=== PATIENT | male | born 1970 | race Caucasian/White ===

== ENCOUNTER 2023-06-10 08:09 | Outpatient (OUT) | payer OTHER, SELFPAY ==
--- NOTE | 2023-06-10 08:00 | CA_ITS ---
Patient Name: RINKU MACHADO MR#: [id number] : 1970 Exam Date: 06/10/2023 Ordering Doctor: ELLIE JEONG ECHOCARDIOGRAM REPORT PROCEDURE: CA ECHO DOPPLER COMPLETE INDICATIONS: Ascending aorta aneurysm, Aortic valve 27 mm Magna pericardial bioprosthesis, CABGx3, hypertension, diabetes COMPARISON: None. DESCRIPTION: COMPLETE ECHOCARDIOGRAM Real-time transthoracic echocardiography with 2D, M-mode, spectral and color flow Doppler performed. QUALITY: Technically difficult due to patient's condition. 68 , 230#, BSA 2.17 m2, BP 134/72 LEFT VENTRICLE: Normal chamber size. Mild concentric left ventricular hypertrophy. LV EF: Global left ventricular systolic function is difficult to assess but appears mildly reduced; visually estimated ejection fraction is 45 to 50%. Unable to assess regional wall motion abnormalities. DIASTOLIC: Grade I diastolic dysfunction. ATRIAL SEPTUM: Visually appears intact. LEFT ATRIUM: Normal chamber size. RIGHT ATRIUM: Normal chamber size. RIGHT VENTRICLE: Normal chamber size. Normal systolic function. TRICUSPID VALVE: Normal mobility and thickness. No stenosis with trivial regurgitation. No evidence of pulmonary hypertension. RVSP 31 mmHg MITRAL VALVE: Normal mobility and thickness. No evidence of mitral valve stenosis. Mild mitral annular calcification. No mitral regurgitation. AORTIC VALVE: Bio-Prosthetic valve appears well seated in the aortic position with normal Doppler flow. No aortic regurgitation. AORTIC ROOT: The aortic root (4.6 cm) and ascending aorta (4.0 cm) are dilated. PULMONIC VALVE: Normal thickness and mobility. No stenosis. Trivial regurgitation. PERICARDIUM: Anterior free space; trivial effusion versus fat pad. IVC: Collapses with inspirations. CONCLUSION: 1. Global left ventricular systolic function is difficult to assess but appears mildly reduced; visually estimated ejection fraction is 45 to 50% 2. Normal right ventricular size and systolic function 3. Mildly increased left ventricular wall thickness 4. Grade 1 diastolic dysfunction 5. A bioprosthetic aortic valve is seen with normal Doppler flow 6. The aortic root is moderately enlarged and the ascending aorta is mildly enlarged 7. Anterior free space; trivial effusion versus fat pad Adult Echocardiography Procedure Report Left Ventricle LVEDD (3.7 - 5.6 cm): 5.61 cm LVESD (2.2 - 4.0 cm): 4.40 cm LVIVS thickness (0.6 - 1.2 cm): 1.27 cm LVPW thickness (0.5 - 1.0 cm): 1.19 cm e': 0.05 m/s E - e': 9.61 LVOT Max Gradient: 1.23 mm[Hg] LVOT Area (cm2): 0.55 m/s Peak Velocity (LVOT): 0.55 m/s Mean Velocity (LVOT): 0.38 m/s LVOT Diameter 2.83 cm Left Atrium Left Atrium Systolic Dimension: 4.18 cm Mitral Valve MV E to A Ratio: 1.10 Mitral Valve A-Wave Peak Velocity: 0.45 m/s Mitral Valve E-Wave Peak Velocity: 0.49 m/s Right Ventricle Aorta AO Root Diam: 4.56 cm Ascending Ao Diam: 4.01 cm Aortic Valve AoV Area (Peak Amari): 3.22 cm2, 3.22 cm2 AoV Area (VTI): 2.92 cm2, 2.92 cm2 Peak Velocity(Antegrade Flow): 1.09 m/s Peak Gradient(Antegrade Flow): 4.72 mm[Hg] Mean Velocity(Antegrade Flow): 0.70 m/s Mean Gradient(Antegrade Flow): 2.24 mm[Hg] Velocity Time Integral: 22.00 cm Tricuspid Valve Peak Velocity (Regurgitant Flow): 2.62 m/s Pulmonic Valve Peak Gradient: 3.45 mm[Hg], 3.75 mm[Hg] Right Atrium Dictated by: Tevin Leigh M.D. on 06/12/2023 at 14:11 Approved by: Tevin Leigh M.D. on 06/12/2023 at 14:16
== END 2023-06-10 08:10 | disposition home or self-care (01) ==
LOC: CARD 08:10
PROVIDERS: Visit Provider Preventive Medicine Occupational Medicine
DX: I71.21 Aneurysm of the ascending aorta, without rupture (principal); Z95.2 Presence of prosthetic heart valve; I50.9 Heart failure, unspecified
CPT/HCPCS: 93306